=== PATIENT | female | born 1935 ===

== ENCOUNTER 2017-12-30 18:01 | Emergency (ER) | payer OTHER ==
[~2017-12-30] VITALS: Ht 160 cm; Wt 63.5 kg
[~2017-12-30 18:01] MED LIST: AZITHROMYCIN250 MG; ECOTRIN81 MG; IOPHEN-C NR LI473 ML; METOPROLOL XL; PROAIR HFA8.5 GM; Zestril PO; [UNRECOGNIZED DRUG - SUPPLY]
[2017-12-30] MEDS ORDERED: XARELTO20 MG (18:29)
[2017-12-30] MEDS ORDERED: CLONAZEPAM1 MG (18:30)
[2017-12-30] MEDS ORDERED: NODOLOR CAPSUL1 EACH (18:30)
[2017-12-30] MEDS ORDERED: ROSUVASTATIN CA20 MG (18:30)
[2017-12-30] MEDS ORDERED: LISINOPRIL20 MG (18:30)
[2017-12-31] MEDS ORDERED: METRONIDAZOLE500 MG PO (04:36)
[2017-12-31] MEDS ORDERED: CIPRO500 MG PO (04:36)
[2017-12-31] MEDS ORDERED: INTESTINEX680 M1 PO (04:36)
[2017-12-31] MEDS ORDERED: LEVSIN0.125 MG PO (04:36)
== END 2017-12-31 04:24 | disposition home or self-care (01) ==
LOC: ER 18:01
DX: K57.92 Diverticulitis of intestine, part unspecified, without perforation or abscess without bleeding (principal)

== ENCOUNTER 2018-04-21 07:22 | Outpatient (CLI) | payer OTHER ==
[~2018-04-21 07:22] MED LIST changes: +CIPRO500 MG PO; +CLONAZEPAM1 MG; +INTESTINEX680 M1 PO; +LEVSIN0.125 MG PO; +LISINOPRIL20 MG; +METRONIDAZOLE500 MG PO; +NODOLOR CAPSUL1 EACH; +ROSUVASTATIN CA20 MG; +XARELTO20 MG
== END 2018-04-21 07:26 | disposition home or self-care (01) ==
LOC: SONOGRAMA 07:22
DX: E04.1 Nontoxic single thyroid nodule (principal)

== ENCOUNTER 2018-06-03 09:03 | Emergency (ER) | payer OTHER ==
[~2018-06-03] VITALS: Ht 162.6 cm; Wt 63.5 kg
== END 2018-06-03 12:19 | disposition home or self-care (01) ==
LOC: ER 09:03
DX: N39.0 Urinary tract infection, site not specified (principal); B96.29 Other Escherichia coli [E. coli] as the cause of diseases classified elsewhere; R31.0 Gross hematuria

== ENCOUNTER 2018-07-11 11:03 | Emergency (ER) | payer OTHER ==
[~2018-07-11] VITALS: Ht 152.4 cm; Wt 63.5 kg
[2018-07-11] MEDS ORDERED: INTESTINEX680 M1 PO (14:48)
[2018-07-11] MEDS ORDERED: CEFUROXIME500 MG PO (14:48)
[2018-07-11] MEDS ORDERED: URIN D.S. TABL1 EACH PO (15:01)
== END 2018-07-11 15:06 | disposition home or self-care (01) ==
LOC: ER 11:03
DX: N39.0 Urinary tract infection, site not specified (principal); B96.29 Other Escherichia coli [E. coli] as the cause of diseases classified elsewhere